=== PATIENT | female | born 1985 | race Two or more races ===

== ENCOUNTER 2016-03-14 11:39 | Emergency (ER) | payer MEDICAID ==
[~2016-03-14] VITALS: Ht 165.1 cm; Wt 68.0 kg
[2016-03-14] MEDS ORDERED: SODIUM CHLORIDE 0.9% 1,000 ML IV ONE (12:26)
[2016-03-14] MEDS ORDERED: LORazepam 2MG/ML-1ML VIAL IV ONE (12:30)
[2016-03-14 14:28] VITALS: BP 103/65
== END 2016-03-14 14:30 | disposition home or self-care (01) ==
LOC: ER 11:39 → EDUNIT# 11:39 → ER 14:30
DX: F41.9 Anxiety disorder, unspecified (principal)
CPT/HCPCS: 96361; 96374; 99284; J2060; J7030

== ENCOUNTER 2017-02-02 14:56 | Emergency (ER) | payer MEDICAID ==
[~2017-02-02] VITALS: Ht 154.9 cm; Wt 70.3 kg
[2017-02-02 16:28] VITALS: BP 123/75
[2017-02-02] MEDS ORDERED: KETOROLAC TROMETH 60MG/2ML VIAL IM ONE (16:45)
[2017-02-02] MEDS ORDERED: PROMETHAZINE HCL 25 MG/ML 1ML IM ONE (16:45)
== END 2017-02-02 17:54 | disposition home or self-care (01) ==
LOC: ER 15:03
DX: G43.909 Migraine, unspecified, not intractable, without status migrainosus (principal)
CPT/HCPCS: 96372; 99284; J1885; J2550

== ENCOUNTER 2017-04-14 04:25 | Emergency (ER) | payer SELFPAY ==
[~2017-04-14] VITALS: Ht 154.9 cm; Wt 72.6 kg
[2017-04-14] MEDS ORDERED: SODIUM CHLORIDE 0.9% 500 ML IVB ONE (04:34)
[2017-04-14 05:00] VITALS: BP 120/68
[2017-04-14 05:09] LABS: Urine WBC None Seen /hpf (0 - 5)
[2017-04-14 05:11] LABS: Urine Pregnacy Test Negative (Negative)
[2017-04-14 05:14] LABS: Urine Bacteria NONE SEEN /hpf (None Seen); Urine Blood Negative /uL (Negative); Urine Specific Gravity 1.009 (1.001-1.035)
[2017-04-14 05:44] LABS: Alcohol, Urine < 3.0 mg/dL (0-5); Amphetamine Screen, Urine NEGATIVE (NEGATIVE); Barbiturate Scree,Urine NEGATIVE (NEGATIVE); Benzodiazephine Screen, Urine NEGATIVE (NEGATIVE); Cannabinoid Screen, Urine NEGATIVE (NEGATIVE); Cocaine Screen, Urine NEGATIVE (NEGATIVE); Opiate Scree,Urine NEGATIVE (NEGATIVE); Phencyclidine Screen, Urine NEGATIVE (NEGATIVE)
[2017-04-14 05:53] LABS: Basophils # (auto) 0.1 uL; Basophils % (auto) 1.1 % (0.0-2.0); Eosinophils # (auto) 0.1 uL; Hematocrit 42.4 % (36.0-46.0); Hemoglobin 13.9 g/dL (12.2-16.2); Lymphocytes # (auto) 1.5 uL; Lymphocytes % (auto) 20.8 % (10.0-50.0); Mean Corpuscular Hemoglobin 29.1 pg (28.0-32.0); Mean Corpuscular Hgb Conc. 32.8 g/dL (32.0-36.0); Mean Corpuscular Volume 88.5 fL (80.0-100.0); Monocytes # (auto) 0.5 uL; Monocytes % (auto) 7.1 % (0.0-12.0); Neutrophils # (auto) 5.2 uL; Platelet Count (auto) 290 10^3/uL (140-450); Red Blood Cells 4.79 10^6/uL (4.0-5.20); Red Cell Distribution Width 13.9 % (11.8-14.3); White Blood Cell 7.4 10^3/uL (4.4-10.8)
[2017-04-14 06:09] LABS: Acetaminophen < 2.0 ug/mL (10-30); Salicylate < 1.7 mg/dL (2.8-20.0)
[2017-04-14 06:16] LABS: Alanine Aminotransferase 12 U/L (13-56); Albumin 3.3 g/dL (3.4-5.0); Alkaline Phosphatase 41 U/L (45-117); Anion Gap 6 (5-15); Aspartate Aminotransferase 13 U/L (15-37); BUN/Creatinine Ratio 17.4; Bilirubin, Total 0.9 mg/dL (0.2-1.0); Blood Alcohol < 3.0 mg/dL (0-5); Blood Urea Nitrogen 12 mg/dL (7-18); Calcium 7.7 mg/dL (8.5-10.1); Carbon Dioxide 25 mmol/L (21-32); Chloride 112 mmol/L (98-107); GFR African American 128 mL/min; GFR Non-African American 106 mL/min; Glucose 124 mg/dL (74-106); Magnesium 2.1 mg/dL (1.6-2.6); Potassium 4.2 mmol/L (3.5-5.1); Sodium 143 mmol/L (136-145); Total Protein 6.3 g/dL (6.4-8.2)
[2017-04-14] MEDS ORDERED: ONDANSETRON HCL 4 MG/2 ML VIAL ONE (06:18)
[2017-04-14] MEDS ORDERED: ONDANSETRON HCL 4 MG/2 ML VIAL IV ONE (06:30)
== END 2017-04-14 07:03 | disposition home or self-care (01) ==
LOC: ER 04:25 → EDBD 04:25 → ER 07:03
DX: F32.9 Major depressive disorder, single episode, unspecified (principal); F41.9 Anxiety disorder, unspecified; T65.91XA Toxic effect of unspecified substance, accidental (unintentional), initial encounter; Z98.51 Tubal ligation status; G89.29 Other chronic pain; Y92.89 Other specified places as the place of occurrence of the external cause
CPT/HCPCS: 36415; 71045; 80053; 80307; 80320; 80329; 81001; 81025; 83735; 85025; 94761; 96374; 99285; J2405

== ENCOUNTER 2020-09-13 09:39 | Emergency (ER) | payer SELFPAY ==
[~2020-09-13] VITALS: Ht 154.9 cm; Wt 65.8 kg
[2020-09-13 10:10] VITALS: BP 132/110
[2020-09-13] MEDS ORDERED: traMADol HCL 50 MG TAB PO ONE (10:30)
== END 2020-09-13 10:40 | disposition home or self-care (01) ==
LOC: ER 09:39
DX: S93.491A Sprain of other ligament of right ankle, initial encounter (principal); W10.8XXA Fall (on) (from) other stairs and steps, initial encounter; Y93.89 Activity, other specified; Y92.89 Other specified places as the place of occurrence of the external cause; Y99.8 Other external cause status
CPT/HCPCS: 29515; 73610